=== PATIENT | male | born 2000 | race American Indian/Alaskan Native ===

== ENCOUNTER 2021-05-23 19:59 | Emergency (ER) | payer MEDICAID ==
[2021-05-23 22:16] VITALS: BP 153/103
--- NOTE | 2021-05-23 23:25 | Emergency Department Report ---
- General Chief Complaint: Headache Stated Complaint: SHORT OF BREATH, RUNNY NOSE, HEADACHE Time Seen by Provider: 05/23/21 21:57 Source: patient Mode of arrival: Ambulatory Limitations: No Limitations - History of Present Illness Initial Comments: 21-year-old -Irish male status post Covid infection presents emerged part of cough congestion coryza with mucus production of unknown etiology reports no diarrhea, no constipation, no chills, no sweats no chest pain MD Complaint: cough, rhinorrhea, nasal congestion -: Gradual, days(s) Severity: moderate Associated Symptoms: fever, chills, myalgias, rhinorrhea, nasal congestion, cough - Related Data Previous Rx's Medication Instructions Recorded Last Taken Type Albuterol Mdi (or & Nicu Only) 1 puff IH Q4-6H PRN #1 inha 05/23/21 Unknown Rx [ProAir HFA Inhaler] Benzonatate [Tessalon Perles] 100 mg PO Q8HR #20 capsule 05/23/21 Unknown Rx predniSONE [Deltasone] 20 mg PO QDAY #5 tab 05/23/21 Unknown Rx Allergies Allergy/AdvReac Type Severity Reaction Status Date / Time No Known Allergies Allergy Verified 05/23/21 21:38 ED Review of Systems ROS: Stated complaint: SHORT OF BREATH, RUNNY NOSE, HEADACHE Other details as noted in HPI Comment: All other systems reviewed and negative ED Past Medical Hx - Past Medical History Hx Asthma: Yes - Medications Home Medications: Home Medications Medication Instructions Recorded Confirmed Last Taken Type Albuterol Mdi (or & Nicu Only) 1 puff IH Q4-6H PRN #1 inha 05/23/21 Unknown Rx [ProAir HFA Inhaler] Benzonatate [Tessalon Perles] 100 mg PO Q8HR #20 capsule 05/23/21 Unknown Rx predniSONE [Deltasone] 20 mg PO QDAY #5 tab 05/23/21 Unknown Rx ED Physical Exam - General Limitations: No Limitations General appearance: alert, in no apparent distress - Head Head exam: Present: atraumatic, normocephalic - Eye Eye exam: Present: normal appearance, PERRL, EOMI Pupils: Present: normal accommodation - ENT ENT exam: Present: normal exam, mucous membranes moist - Neck Neck exam: Present: normal inspection, full ROM - Respiratory Respiratory exam: Present: normal lung sounds bilaterally. Absent: respiratory distress, wheezes - Cardiovascular Cardiovascular Exam: Present: regular rate, normal rhythm. Absent: systolic murmur, diastolic murmur, rubs, gallop - GI/Abdominal GI/Abdominal exam: Present: soft, normal bowel sounds - Rectal Rectal exam: Present: deferred - Extremities Exam Extremities exam: Present: normal inspection, normal capillary refill - Back Exam Back exam: Present: normal inspection. Absent: CVA tenderness (R), CVA tenderness (L) - Neurological Exam Neurological exam: Present: alert, oriented X3, CN II-XII intact, normal gait - Psychiatric Psychiatric exam: Present: normal affect, normal mood - Skin Skin exam: Present: warm, dry, intact, normal color. Absent: rash, diaphoretic, erythema, urticaria, pallor, abrasion ED Course Vital Signs 05/23/21 21:37 Temperature 98.2 F Pulse Rate 57 L Respiratory 16 Rate Blood Pressure 153/103 O2 Sat by Pulse 100 Oximetry ED Medical Decision Making - Medical Decision Making This 21-year-old male patient presents with symptoms suspicious for likely viral upper respiratory tract infection. Differential includes bacterial pneumonia, sinusitis, allergic rhinitis, viral syndrome. Do not suspect underlying Cardiopulmonary process. I considered but think unlikely dangerous cause of this patient symptoms to include acute coronary syndrome, CHF or COPD exacerbations, pneumonia, pneumothorax. Patient is nontoxic appearing and not in need of emergent medical intervention. Plan: Reassurance, reassessment, [id number] medications, discharge with PCP follow-up Critical care attestation.: If time is entered above; I have spent that time in minutes in the direct care of this critically ill patient, excluding procedure time. ED Disposition Clinical Impression: URI (upper respiratory infection) Disposition: 01 HOME / SELF CARE / HOMELESS Is pt being admited?: No Does the pt Need Aspirin: No Condition: Stable Instructions: Upper Respiratory Infection, Adult, [id number], Cool Mist Vaporizer, Cough, Adult Additional Instructions: Given evaluate emergency department today for your congestion, cough and fevers. Your evaluation suggest that your symptoms are most likely due to a viral illness. Which will improve on its own with rest and fluids. Recommend that you take ibuprofen 600 mg every 6 hours or Tylenol 02/19/1949 every 6 hours as needed for fever. If needed you can alternate these medications so that you take one medication every 3 hours. For instance at noon take ibuprofen and at 3 PM take Tylenol and then at 6 PM take ibuprofen. Please schedule an appointment for follow-up with your primary care physician within a week. Return to the emergency department if you experience worsening cough, uncon trollable fevers that not being controlled with Tylenol ibuprofen. Recurrent vomiting, chest pain, shortness of breath or any other symptoms suggesting that your condition is worsening. Prescriptions: predniSONE [Deltasone] 20 mg PO QDAY #5 tab Albuterol Mdi (or & Nicu Only) [ProAir HFA Inhaler] 1 puff IH Q4-6H PRN #1 inha PRN Reason: Cough Benzonatate [Tessalon Perles] 100 mg PO Q8HR #20 capsule Referrals: SANRDA GALARZA MD [Primary Care Provider] - 3-5 Days
== END 2021-05-23 23:40 | disposition home or self-care (01) ==
LOC: ED 19:59
DX: J06.9 Acute upper respiratory infection, unspecified (principal)
CPT/HCPCS: 99282